=== PATIENT | female | born 1995 | race Hispanic/Latino ===

== ENCOUNTER 2018-09-25 19:32 | Emergency (ER) | payer BC, OTHER ==
[2018-09-25] MEDS ORDERED: Ketorolac Tromethamine 30 MG/ML VIAL ONE (19:49)
[2018-09-25 20:18] LABS: Bilirubin Small (Negative); Blood, Urine Trace (Negative); Clarity Clear (Clear); Glucose, Urine (Dipstick) Negative (Negative); Leukocyte Negative (Negative); Nitrite Negative (Negative); Pregnancy Test - Urine (BHCG) Negative (Negative); Pregu Control Background? CLEAR/WHITE (CLR/WHITE); Pregu Control Bar Appear? YES (CONTROL BAR); Protein, Urine (Dipstick) Trace mg/dL (Neg-Trace); Specific Gravity 1.028 (1.002-1.036)
[2018-09-25 20:19] LABS: Specific Gravity, Urine 1.028 (1.002-1.036)
[2018-09-25 20:24] LABS: Bacteria/HPF 3+ HPF (None Seen); RBC/HPF 0-3 HPF (0-3); WBC/HPF None Seen HPF (0-3)
[2018-09-25 20:26] LABS: #Lymphocytes 0.6 thou/uL (1.20-3.40); #Monocytes 0.4 thou/uL (0.11-0.59); #Neutrophils 5.1 thou/uL (1.40-6.50); %Basophils 0.5 % (0.0-1.0); %Monocytes 7.1 % (0.0-10.0); %Neutrophils 82.3 % (42.0-75.0); Hemoglobin 14.2 g/dL (12.0-16.0); Mean Corpuscular HGB CONC 35.4 g/dL (32.0-36.0); Mean Corpuscular Hemoglobin 33.6 pg (27.0-31.0); Mean Corpuscular Volume 94.7 fL (78.0-98.0); Mean Platelet Volume 8.2 fL (7.4-10.4); Platelet Count 153 thou/uL (130-400); RBC Distribution Width 10.3 % (11.5-14.5); Red Blood Cell (RBC) Count 4.23 mill/uL (4.20-5.40); White Blood Cell (WBC) Count 6.2 thou/uL (4.8-10.8)
[2018-09-25] MEDS ORDERED: Morphine 4 MG/ML VIAL ONE (20:27)
[2018-09-25 20:32] LABS: ALT (SGPT) 8 U/L (8-55); AST (SGOT) 14 U/L (5-34); Albumin 4.3 g/dL (3.5-5.0); Alkaline Phosphatase 56 U/L (40-150); Anion Gap 15 mmol/L (10-20); BUN (Urea Nitrogen) 14 mg/dL (7.0-18.7); Bilirubin, Total 0.6 mg/dL (0.2-1.2); Calc. Creatinine Clearance 0 mL/min (70-130); Calcium 8.8 mg/dL (7.8-10.44); Carbon Dioxide 20 mmol/L (22-29); Chloride 107 mmol/L (98-107); Estimated GFR-MDRD Greater than 90; Globulin 2.5 g/dL (2.4-3.5); Glucose 90 mg/dL (70-105); Lipase 11 U/L (8-78); Potassium 3.9 mmol/L (3.5-5.1); Protein, Total 6.8 g/dL (6.0-8.3); Sodium 138 mmol/L (136-145)
--- NOTE | 2018-09-25 21:08 | CT ---
CT ABDOMEN NONCONTRAST CT PELVIS NONCONTRAST: (urolithiasis protocol) 09/25/18 at 8:48 p.m. HISTORY: 23-year-old female with flank pain. TECHNIQUE: IV injection of iodinated contrast media: none Oral contrast media: none FINDINGS: Other than for urolithiasis, the lack of IV and oral contrast limits the evaluation. Liver: No contour abnormalities. Spleen: No splenomegaly. Pancreas: No contour abnormalities. Adrenals: No mass. Kidneys: No nephrolithiasis or overt hydronephrosis. Ureters: No calculi. Bladder: No calculi. Abdominal aorta: No aneurysm. Small bowel: No dilation. Colon: No adjacent fat stranding. Appendix: No dilation or adjacent fat stranding. Free air: None. Free fluid: None. There is a 3 x 3 x 2 cm low density structure in the right pelvic cavity just medial to the right obt urator internus muscle, consistent with a right ovarian cyst. IMPRESSION: 1. Right ovarian cyst. 2. Otherwise negative. 3. No urolithiasis or obstructive uropathy. jonas powell POS: [facility]
--- NOTE | 2018-09-25 22:32 | ULT ---
PELVIC SONOGRAM TRANSABDOMINAL IMAGING WITH DUPLEX EVALUATION: 09/25/18 HISTORY: Pelvic pain. FINDINGS: The urinary bladder is incompletely distended. Uterus has a homogeneous echotexture and is 7.2 cm. En dometrium is 0.4 cm. No free fluid. Right ovary is 3.0 cm with a dominant follicle and good color and spectral doppler flow. Left ovary is 3.4 cm with good color and spectral doppler flow. IMPRESSION: Normal pelvic sonogram. POS: [facility]
== END 2018-09-25 22:42 | disposition home or self-care (01) ==
LOC: SCSER 19:32
DX: N83.201 Unspecified ovarian cyst, right side (principal)
CPT/HCPCS: 36415; 74176; 76856; 80053; 81003; 81015; 81025; 83605; 83690; 85025; 96361; 96374; 96375; J1885; J2270

== ENCOUNTER 2018-09-27 09:52 | Emergency (ER) | payer BC | END 2018-09-27 10:45 | disposition home or self-care (01) | LOC: SCSER 09:52 | DX: J06.9 Acute upper respiratory infection, unspecified (principal); Z79.891 Long term (current) use of opiate analgesic | CPT/HCPCS: 99281 ==

== ENCOUNTER 2019-12-19 20:49 | Emergency (ER) | payer BC, OTHER | END 2019-12-19 22:31 | disposition home or self-care (01) | LOC: ERS 20:49 | DX: Z04.3 Encounter for examination and observation following other accident (principal); Z3A.19 19 weeks gestation of pregnancy; W01.0XXA Fall on same level from slipping, tripping and stumbling without subsequent striking against object, initial encounter | CPT/HCPCS: 36415; 84702; 99283 ==

== ENCOUNTER 2020-02-21 19:36 | Emergency (ER) | payer OTHER ==
[2020-02-22 14:17] LABS: SARS-CoV-2 MS2 Positive; SARS-CoV-2 N Gene Negative; SARS-CoV-2 S Gene Negative; SARS-CoV-2 orf1ab Negative
== END 2020-02-21 20:40 | disposition home or self-care (01) ==
LOC: ERS 19:36
DX: O98.513 Other viral diseases complicating pregnancy, third trimester (principal); J02.9 Acute pharyngitis, unspecified; Z3A.28 28 weeks gestation of pregnancy; Z20.828 Contact with and (suspected) exposure to other viral communicable diseases
CPT/HCPCS: 87081; 87430; 87635; 99283; U0003

== ENCOUNTER 2021-06-05 10:51 | Outpatient (CLI) | payer OTHER | END 2021-06-05 10:52 | disposition home or self-care (01) | LOC: BICRAD 10:51 | PROVIDERS: ATTEND Nurse Practitioner Family | DX: T83.32XA Displacement of intrauterine contraceptive device, initial encounter (principal) | CPT/HCPCS: 72170 ==